=== PATIENT | female | born 1935 | race Caucasian/White ===

== ENCOUNTER 2016-08-15 15:37 | Emergency (ER) | payer MEDICARE, MEDICAID ==
[~2016-08-15] VITALS: Wt 65.9 kg
[~2016-08-15 15:37] MED LIST: ASPI325T4 PO; CARB200C PO; CLOP75TA19 PO; DIAZ5TAB4 PO; DONE5TAB46 PO; ENAL10TA PO; FOLI-49 PO; HYDR50TA3 PO; INSU100V18 SC; INSU100V23 SC; ISOS30TA PO; LIPA1CAP45 PO; POTA8TAB2 PO; RANO500T2 PO; SIMV20TA2 PO; ZOLP5TAB PO
[2016-08-15 16:56] LABS: URINE BLOOD (Dip) POC Negative (NEGATIVE)
[2016-08-15] MEDS ORDERED: ACET500C5 PO (17:08)
[2016-08-15] MEDS ORDERED: CEPH-443 PO (17:11)
[2016-08-15] MEDS ORDERED: PHEN-538 PO (17:11)
[2016-08-15] MEDS ORDERED: CLOT30CR24 TOP (17:12)
--- NOTE | 2016-08-15 17:15 | ERD ---
ER Documentation Chief Complaint Date/Time DATE: 08/15/16 TIME: 17:13 Chief Complaint dysuria HPI This 81-year-old female presents with dysuria for last week. She may have had a tactile fever yesterday but no measured temperature. She has no shortness of breath, vomiting, abdominal pain. She has a history of UTI and it feels the same. She is also had a cough last week. ROS All systems reviewed and are negative except as per history of present illness. Medications Home Meds Active Scripts Clotrimazole* (Clotrimazole* AF) 1% - 30 Gm Cream.gm., 1 APPLIC TOP BID for 10 Days, TUB Prov:KISHORE RESENDIZ MD 08/15/16 Cephalexin* (Keflex*) 500 Mg Capsule, 500 MG PO QID for 5 Days, CAP Prov:KISHORE RESENDIZ MD 08/15/16 Phenazopyridine Hcl* (Pyridium*) 200 Mg Tab, 200 MG PO TID Y for URINARY PAIN, # 6 TAB Prov:KISHORE RESENDIZ MD 08/15/16 Acetaminophen* (Tylophen*) 500 Mg Capsule, 1 CAP PO Q6H Y for PAIN AND OR ELEVATED TEMP, #14 CAP Prov:KISHORE RESENDIZ MD 08/15/16 Reported Medications Ranolazine* (Ranexa*) 500 Mg Tab.sr.12h, 750 MG PO DAILY, TAB 10/31/14 Wcqqjg-Chiypabk-Ntwqpgu* (Ting SHERMAN* 36,000) 36,000 L-114,000-180,000 Unit Capsule.dr, 1 CAP PO WITH MEALS, CAP 10/31/14 Zolpidem Tartrate* (Ambien*) 5 Mg Tablet, 5 MG PO HS MAY REPEAT X 1 Y for INSOMNIA, TAB 10/31/14 Insulin Regular, Human* (Novolin R*) 100 U/Ml Vial, 40 UNIT SC QAM AND PER SC, VIAL 10/31/14 Insulin Regular, Human* (Novolin R*) 100 U/Ml Vial, 0 SC SLIDING SCALE AC, VIAL 201-250 = 4 UNITS 251-300 = 5 UNITS 301-350 = 6 UNITS 351-400 = 7 UNITS 401-450 = 8 UNITS 10/31/14 Insuln Asp Prt/Insulin Aspart (Novolog Mix 70-30 Vial*) 100 Units/Ml Vial, SC BID, VIAL 10/31/14 Potassium Chloride* (Klor-Con*) 8 Meq Tablet.sa, 8 MEQ PO DAILY, TAB 06/15/14 Hydrochlorothiazide* (Hydrochlorothiazide*) 50 Mg Tab, 50 MG PO DAILY, TAB 06/15/14 Enalapril Maleate* (Enalapril Maleate*) 10 Mg Tablet, 10 MG PO BID, TAB 06/15/14 Isosorbide Mononitrate* (Imdur*) 30 Mg Tab.sr.24h, 30 MG PO DAILY, TAB 06/15/14 Diazepam* (Diazepam*) 5 Mg Tablet, 5 MG PO DAILY Y 04/03/12 Simvastatin (Simvastatin) 20 Mg Tablet, 20 MG PO HS 04/03/12 Aspirin* (Aspirin*) 325 Mg Tablet, 325 MG PO DAILY 04/03/12 Clopidogrel Bisulfate (Plavix) 75 Mg Tablet, 75 MG PO DAILY 04/03/12 Carbamazepine (Equetro) 200 Mg Cpmp.12hr, 200 MG PO BID, 0 Refills 05/12/09 Donepezil* (Aricept*) 5 Mg Tablet, 5 MG PO DAILY, 0 Refills 05/12/09 Folic Acid* (Folic Acid*) 1 Mg Tablet, 1 MG PO DAILY, 0 Refills 05/12/09 Allergies Allergies: Coded Allergies: codeine (Verified Allergy, Intermediate, RASHES, 10/31/14) levofloxacin (Verified Allergy, Mild, RASH, VOMITING, 10/31/14) oxycodone (Verified Allergy, Mild, RASH, 10/31/14) PMhx/Soc History of Surgery: Yes (CSECTION) Anesthesia Reaction: No Hx Neurological Disorder: Yes (CVA, SEIZURE) Hx Respiratory Disorders: No Hx Cardiac Disorders: Yes (CARDIAC STENTS, AL, HTN) Hx Psychiatric Problems: No Hx Miscellaneous Medical Probl: No Hx Alcohol Use: No Hx Substance Use: No Hx Tobacco Use: No Physical Exam Vitals Vital Signs Date Time Temp Pulse Resp B/P Pulse Ox O2 Delivery O2 Flow Rate FiO2 08/15/16 15:41 99.1 60 20 155/68 100 Physical Exam Const: [] Alert, not ill-appearing. Head: Atraumatic Eyes: Normal Conjunctiva ENT: Normal External Ears, Nose and Mouth. Neck: Full range of motion..~ No meningismus. Resp: Clear to auscultation bilaterally. No rales or wheezing appreciated. Cardio: Regular rate and rhythm, no murmurs Abd: Soft, non tender, non distended. Normal bowel sounds Skin: No petechiae or rashes Back: No midline or flank tenderness Ext: No cyanosis, or edema Neur: Awake and alert Psych: Normal Mood and Affect Results 24 hrs Laboratory Tests Test 08/15/16 16:56 Bedside Urine pH (LAB) 5.5 Bedside Urine Protein (LAB) Trace Bedside Urine Glucose (UA) Negative Bedside Urine Ketones (LAB) Negative Bedside Urine Blood Negative Bedside Urine Nitrite (LAB) Negative Bedside Urine Leukocyte Esterase (L Negative Current Medications Medications (Trade) Dose Ordered Sig/Susie Route PRN Reason Start Time Stop Time Status Last Admin Dose Admin Fluconazole (Diflucan) 150 mg ONCE ONCE PO 08/15/16 17:30 4 17:31 Acetaminophen (Tylenol Tab) 650 mg ONCE ONCE PO 08/15/16 17:30 4 17:31 Procedures/MDM Cath UA was negative for leukocytes, nitrates, hemoglobin was sent for culture. Patient presents with dysuria of uncertain etiology for last week. Possibly some inflammation of the external vaginal area and patient will be treated for vaginitis with Diflucan 150 today and Lotrimin at home. Family is insisting on antibiotics given her symptoms and will be provided with a prescription with recommendations to hold for at least 24 hours to see if treatment improves with treatment for fungal infection. Tender symptoms do not suggest acute abdomen, sepsis, hypoxemia, additional causes of dysuria. Patient should otherwise return for fevers, vomiting, new worsening symptoms with primary care doctor this week. The patient was stable with no new complaints during the ER course. Clinically, there is no current evidence to suggest meningitis, sepsis, acute abdomen, pneumonia, acute coronary syndrome, pulmonary embolism, or any other emergent condition appearing to require further evaluation or hospitalization. The patient should certainly return for any new or worsening symptoms per the aftercare instructions. They should otherwise follow-up with her primary care doctor for reevaluation this week. Departure Diagnosis: Primary Impression: Dysuria Additional Impression: Hypertension Hypertension type: essential hypertension Qualified Code: I10 - Essential hypertension Condition: Stable Patient Instructions: Dysuria, Vaginitis, Chrissy Additional Instructions: Urine normal today. We will treat for fungal infection. Will give prescription for antibiotics (Keflex) recommend holding for 24 hours. Urine culture was sent and will return in 3-5 days. Recheck for new or worsening symptoms otherwise. KISHORE RESENDIZ MD Aug 15, 2016 17:14
[2016-08-15] MEDS ORDERED: FLUCONAZOLE 150 MG TAB PO ONE (17:30)
[2016-08-15] MEDS ORDERED: ACETAMINOPHEN 325 MG TAB PO ONE (17:30)
== END 2016-08-15 17:34 | disposition home or self-care (01) ==
LOC: FTE 15:37
DX: R30.0 Dysuria (principal); I10 Essential (primary) hypertension; E11.9 Type 2 diabetes mellitus without complications; Z79.4 Long term (current) use of insulin; Z79.01 Long term (current) use of anticoagulants; Z79.82 Long term (current) use of aspirin; Z98.61 Coronary angioplasty status
CPT/HCPCS: 81003; 87086; P9612

== ENCOUNTER 2017-06-16 12:10 | Inpatient (IN) | END 2017-06-23 13:05 | disposition home or self-care (01) | DRG 280 ==